=== PATIENT | female | born 1970 | race Asian ===

== ENCOUNTER 2017-11-06 20:04 | Emergency (ER) | payer OTHER ==
--- NOTE | 2017-11-06 20:36 | ED Physician Chart ---
ED Chief Complaint/HPI - Patient Information Date Seen:: 11/06/17 Time Seen:: 20:35 Chief Complaint:: Left foot pain History of Present Illness:: 47 yo female complained left foot pain caused by a lump to the bottom of her left foot. She had the lump for several years and the pain worsened last night. Walking and standing aggravated the pain. Vitals:: Vital Signs - 8 hr 11/06/17 20:10 Temp 98.1 F HR 81 RR 19 BP 129/92 O2 Sat % 99 ED Review of Systems - Review of Systems General/Constitutional: No fever Skin: No bruising Head: No headache Eyes: No pain ENT: No earache Neck: No neck pain Cardio Vascular: No chest pain Pulmonary: No SOB GI: No nausea, No vomiting Musculoskeletal: Other (Left foot pain) ED Past Medical History - Past Medical History Past Medical History: HTN, Dyslipidemia (hyperlipidemia), PUD/GERD, Other (PUD, Migraines, Dermatitis) Social History: Non Smoker, No Alcohol, No Drug Use Surgical History: None Family Medical History - Family Member Mother History Unknown: Yes Ethnicity: Non- Living Status: Still Living ED Physical Exam - Physical Examination General/Constitutional: Awake Head: Atraumatic Eyes: PERRL Skin: No ecchymosis ENMT: Nasal exam nl Neck: No nuchal rigidity Respiratory: Clear to Auscultation Cardio Vascular: RRR, No murmur, gallop, rubs, NL S1 S2 GI: No tenderness/rebounding/guarding Other Extremities comments:: Left foot painful nodule in between 3rd and 4th metatarsophalangeal bones Neuro/Psych: No focal deficits ED Labs/Radiology/EKG Results - Radiology Results Results: Left foot X ray: no acute fracture ED Assessment - Assessment General Assessment: Left foot Brown's neuroma Assessment/Comments:: Left foot X ray D/c home 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 Is Septic Shock (SBP<90, OR Lactate>4 mmol\L) present?: No - <6hrs of presentation: Vital Signs: Vital Signs - 8 hr 11/06/17 20:10 Temp 98.1 F HR 81 RR 19 BP 129/92 O2 Sat % 99 ED Reassessment (Disposition) - Reassessment Reassessment Condition:: Unchanged - Patient Disposition Discharge/Transfer:: Home ED Discharge Plan - Patient Disposition Admit/Discharge/Transfer: PT DISCHARGED HOME Instructions: Brown's Neuroma (Interdigital Plantar Neuroma)-[facility] Additional Instructions: FOLLOW UP WITH YOUR REGULAR DOCTOR, FOR A REFERRAL TO A [facility].
--- NOTE | 2017-11-07 09:29 | Diagnostic Imaging Report ---
Right foot 3 views Indication: pain Comparison: none Findings: A bipartite first toe sesamoid is noted. Mild degenerative changes are seen greatest at the first MTP joint with minimal hallux valgus. No evidence of an acute fracture or dislocation. No significant focal soft tissue swelling. Mild distal Achilles spurring is noted. Impression: No evidence of an acute fracture. Mild degenerative changes primarily the first MTP joint with mild hallux valgus. In the setting of trauma, if clinical symptoms persist and there is continued concern for an occult fracture, follow up exams in 5-7 days is suggested.
== END 2017-11-06 21:05 | disposition home or self-care (01) ==
LOC: ER 20:04
DX: G57.62 Lesion of plantar nerve, left lower limb (principal); I10 Essential (primary) hypertension; E78.5 Hyperlipidemia, unspecified; K21.9 Gastro-esophageal reflux disease without esophagitis; Z87.11 Personal history of peptic ulcer disease
CPT/HCPCS: 73630-TC-LT; Z7502

== ENCOUNTER 2017-12-03 07:35 | Outpatient (CLI) | payer OTHER ==
--- NOTE | 2017-12-03 09:31 | Diagnostic Imaging Report ---
Ultrasound left foot (plantar region) HISTORY: Mass. Sonographic sector images were obtained over the plantar soft tissues of the left foot. There is an approximate 0.8 x 0 0.7, 0.5 severe hypoechoic rounded focus. Sonographic appearance is nonspecific. If necessary, an MRI exam would provide additional characterization and assessment. IMPRESSION: 1. Subcentimeter nonspecific hypoechoic focus within the soft tissues along the plantar aspect of the left foot. If necessary, an MRI exam would provide additional characterization.
== END 2017-12-03 09:00 | disposition home or self-care (01) ==
LOC: RAD 07:35
DX: G57.62 Lesion of plantar nerve, left lower limb (principal)
CPT/HCPCS: 76881-TC-LT

== ENCOUNTER 2019-01-30 18:10 | Outpatient (CLI) | payer OTHER ==
[2019-01-30 18:48] LABS: ANION GAP 12.9 (7.0-16.0); BUN - UREA NITROGEN 12 mg/dL (7-25); CALCIUM SERUM 9.6 mg/dL (8.6-10.3); CARBON DIOXIDE 24.4 mEq/L (21.0-31.0); CHLORIDE 101 mEq/L (98-107); CHOLESTEROL 273 mg/dL (<200); CREATININE - SERUM 0.6 mg/dL (0.6-1.2); GFR AFRICAN-AMERICAN > 60.0 ml/min (>90); GFR NON AFRICAN-AMERICAN > 60.0 ml/min; GLUCOSE 109 mg/dL (70-105); HDL -HIGH DENSITY LIPOPROTEIN 66 mg/dL (23-92); POTASSIUM SERUM 3.3 mEq/L (3.5-5.1); SODIUM SERUM 135 mEq/L (136-145); TRIGLYCERIDES 76 mg/dL (<150)
== END 2019-01-30 18:28 | disposition home or self-care (01) ==
LOC: LAB 18:10 → EEVIPCON 18:10 → LAB 18:28
DX: I10 Essential (primary) hypertension (principal)
CPT/HCPCS: 36415-UA; 80048-TC; 80061-TC; 83036-90; 84439-90; 84443-TC; 84480-90

== ENCOUNTER 2019-02-14 23:40 | Outpatient (CLI) | payer OTHER | END 2019-02-14 23:59 | disposition home or self-care (01) | LOC: LAB 23:40 → EEVIPCON 23:40 → LAB 23:59 | PROVIDERS: ATTEND Family Medicine | DX: I10 Essential (primary) hypertension (principal) | CPT/HCPCS: 82088-90; 84244-90 ==